=== PATIENT | female | born 1995 | race Caucasian/White ===

== ENCOUNTER 2018-06-15 20:19 | Emergency (ER) | payer OTHER, MEDICAID, SELFPAY ==
[2018-06-15 20:25] VITALS: BP 121/70; PULSE 110; RESP 14; TEMP 36.7; O2SAT 100
--- NOTE | 2018-06-15 20:35 | ED_ITS ---
HPI - Female Genitourinary <Quin Rogers PA-C - Last Filed: 06/15/18 21:49> General Chief complaint: Abdominal Pain Stated complaint: STATES SEVERE PAIN IN RIGHT SIDE AND BACK Time Seen by Provider: 06/15/18 20:23 Source: patient Mode of arrival: ambulatory Limitations: no limitations History of Present Illness HPI Narrative: This 23-year-old female comes in due to right flank pain since yesterday. She states that she had onset of urinary burning and frequency without hematuria 4 days ago. She states that the frequency actually got better but still continues to have burning with urination. She states that the flank pain has been gradually worse since yesterday, constant though applying heat seems to help. She denies abdominal pain. She has had mild nausea today without any vomiting. She has not had fever, chills, or sweats. She states she ate normally earlier today. She denies any new trauma or exercises, no known injury. She denies any rash or recent illness. She denies any vaginal discharge or STD concerns. Denies but not on control. She has a 1-year-old, not breast feeding. No chest pain, dyspnea, or other new symptoms on systems review Related Data Previous Rx's Medication Instructions Recorded amoxicillin 500 mg PO BID #20 cap 02/23/17 levofloxacin 750 mg PO DAILY 5 Days #5 tab 06/15/18 Allergies Allergy/AdvReac Type Severity Reaction Status Date / Time No Known Drug Allergies Allergy Verified 06/15/18 20:27 Review of Systems <Quin Rogers PA-C - Last Filed: 06/15/18 21:49> Review of Systems ROS Unobtainable: All systems reviewed & are unremarkable except as noted in HPI and below PFSH <ADIN Duvall Last Filed: 06/15/18 21:49> Medical History Psoriasis (Chronic) Surgical History Status post (Resolved) Family History Other No pertinent family history Social History Smoking Status: Current every day smoker Family History Other No pertinent family history Social History Smoking Status: Current every day smoker Exam <ADIN Duvall Last Filed: 06/15/18 21:49> Narrative Exam Narrative: GENERAL APPEARANCE: Patient sitting comfortably, in no distress. LUNGS: Clear to auscultation bilaterally. HEART: Rate and rhythm regular without murmur, normal S1 and S2, no S3 or S4. ABDOMEN: Soft, NT, ND, +BS x 4 quadrants, +right CVAT DERMATOLOGIC: No exanthem Initial Vital Signs Initial Vital Signs: Vital Signs Temperature 98.0 F 06/15/18 20:25 Pulse Rate 110 H 06/15/18 20:25 Respiratory Rate 14 06/15/18 20:25 Blood Pressure 121/70 06/15/18 20:25 Pulse Oximetry 100 06/15/18 20:25 <Lucio Payne DO - Last Filed: 06/15/18 22:39> Initial Vital Signs Initial Vital Signs: Vital Signs Temperature 98.0 F 06/15/18 20:25 Pulse Rate 110 H 06/15/18 20:25 Respiratory Rate 14 06/15/18 20:25 Blood Pressure 121/70 06/15/18 20:25 Pulse Oximetry 100 06/15/18 20:25 Course <Quin Rogers PA-C - Last Filed: 06/15/18 21:49> Additional Information: Patient had not eaten dinner or had much fluid later today but tolerating water without problems. She did not feel like she needed antinausea medication while here, was given a prepack of Zofran to have on hand in case needed. She tolerated 1st dose of Zofran without any problems. Discussed importance of her picking this up and continuing antibiotic as well as need to return if any acutely worsening symptoms given that she does not have a PCP. She is agreeable Orders Ordered: ED Orders 06/15/18 20:55 Urine Culture Stat Discontinued Medications Levofloxacin (Levaquin) 750 mg PO NOW ONE Stop: 06/15/18 21:08 Last Admin: 06/15/18 21:14 Dose: 750 mg Ondansetron HCl (Zofran Odt Prepack) 1 bottle MISC SEEINSTR ONE Stop: 06/15/18 21:32 Last Admin: 06/15/18 21:35 Dose: 1 bottle Vital Signs - 8 hr 06/15/18 20:25 06/15/18 21:42 Temperature 98.0 F Pulse Rate 110 H 100 H Respiratory Rate 14 16 Blood Pressure 121/70 122/77 Pulse Oximetry 100 100 Repeat pulse 100 prior to discharge <Lucio Payne DO - Last Filed: 06/15/18 22:39> Orders Ordered: ED Orders 06/15/18 20:55 Urine Culture Stat Discontinued Medications Levofloxacin (Levaquin) 750 mg PO NOW ONE Stop: 06/15/18 21:08 Last Admin: 06/15/18 21:14 Dose: 750 mg Ondansetron HCl (Zofran Odt Prepack) 1 bottle MISC SEEINSTR ONE Stop: 06/15/18 21:32 Last Admin: 06/15/18 21:35 Dose: 1 bottle Vital Signs - 8 hr 06/15/18 20:25 06/15/18 21:42 Temperature 98.0 F Pulse Rate 110 H 100 H Respiratory Rate 14 16 Blood Pressure 121/70 122/77 Pulse Oximetry 100 100 MDM - Female Genitourinary <Quin Rogers PA-C - Last Filed: 06/15/18 21:49> Lab Data Point of Care Testing Test Results Negative Urine Dip Bedside Urine Glucose Negative Bedside Urine Bilirubin - Negative Bedside Urine Ketone - Negative Urine Specific [place] 1.030 Bedside Urine Occult Blood +/- Bedside Urine Protein + 30 Bedside Urine Urobilinogen - Negative Bedside Urine Nitrite - Negative Bedside Urine Leukocytes ++ 125 Esterase <Lucio Payne DO - Last Filed: 06/15/18 22:39> Lab Data Point of Care Testing Test Results Negative Urine Dip Bedside Urine Glucose Negative Bedside Urine Bilirubin - Negative Bedside Urine Ketone - Negative Urine Specific [place] 1.030 Bedside Urine Occult Blood +/- Bedside Urine Protein + 30 Bedside Urine Urobilinogen - Negative Bedside Urine Nitrite - Negative Bedside Urine Leukocytes ++ 125 Esterase Discharge Plan Departure Patient Disposition: Home Clinical Impression: Kidney infection Discharge Date/Time: 06/15/18 21:44 Interventions: ED Discharge Assessment Last Done: 06/15/18 21:42 Instructions: DI for Kidney Infection Activity Restrictions/Additional Instructions: Please spanish moss picker your antibiotic tomorrow and take the next dose tomorrow evening. You have a few nausea pills that we gave you tonight if you do need them. You can use [id number] azo or similar if you needed for urinary pain for the next couple of days. You can also take ibuprofen [id number] 800 mg (4 of the [id number]-[id number] tablets every 8 hr) to help treat your back pain. As we talked about, you should return right away if you have any acutely worsening symptoms, or new symptoms such as vomiting or fever. This antibiotic treats the vast majority of infections however we are sending off a culture to confirm this and it will take 2 or 3 days to come back. Prescriptions: New levofloxacin 750 mg tablet 750 mg PO DAILY 5 Days Qty: 5 RF: 0 No Action amoxicillin 500 MG capsule 500 mg PO BID Qty: 20 RF: 0 <Lucio Payne DO - Last Filed: 06/15/18 22:39> Cosign ED Attending Venancio Attestation: I was immediately available in the department for consultation. Documentation has been reviewed. I agree with assessment and plan.
[2018-06-15] MEDS: levoFLOXacin 250 MG TABLET 750 MG PO (21:14)
[2018-06-15] MEDS: ONDANSETRON 4 MG ODT PREPACK 1 BOTTLE MISC (21:35)
[2018-06-15 21:42] VITALS: BP 122/77; PULSE 100; RESP 16; O2SAT 100
== END 2018-06-15 21:44 | disposition home or self-care (01) ==
PROVIDERS: Emergency Provider Internal Medicine
DX: N15.9 Renal tubulo-interstitial disease, unspecified (principal)
CPT/HCPCS: 81003; 81025; 87077; 87086; 87147; 99283

== ENCOUNTER 2023-04-09 19:15 | Emergency (ER) | payer OTHER, MEDICAID, SELFPAY ==
[2023-04-09 19:20] VITALS: BP 138/81; PULSE 65; RESP 18; TEMP 36.7; O2SAT 99; BMI 23.8
--- NOTE | 2023-04-09 20:37 | ED.SKABFB ---
HPI - Skin/Abscess/Foreign Bdy General Chief complaint: Skin/Abscess/Foreign Body Stated complaint: sinus infection, facial swelling,pain Time Seen by Provider: 04/09/23 19:56 Source: patient Mode of arrival: Ambulatory Limitations: no limitations History of Present Illness HPI narrative: Patient is a 27-year-old female who is here for evaluation worsening left-sided sinus infection. She states that earlier this week she was seen at an outside facility. Was told that it was a sinus infection. Has been on amoxicillin, cetirizine and Decadron however she states that she feels like the swelling on the left side of her face is potentially worsening and certainly not getting any better. No problems swallowing or breathing. Pain is on the left cheek. No fevers. She has taken all of her antibiotics as directed. She has no dental pain. She was told that potentially this was a dental source of an infection but no drainage was done for the time of her original evaluation Related Data Previous Rx's Medication Instructions Recorded amoxicillin 500 mg capsule 500 mg PO BID #20 caps 02/23/17 penicillin V potassium 500 mg 500 mg PO QID 7 days #28 tabs 04/09/23 tablet Allergies Allergy/AdvReac Type Severity Reaction Status Date / Time No Known Drug Allergies Allergy Verified 06/15/18 20:27 Review of Systems Constitutional Constitutional: Reports system reviewed and no additional complaints, except as documented ENT Ears, Nose, Mouth, and Throat: Reports system reviewed and no additional complaints, except as documented Respiratory Respiratory: Reports system reviewed and no additional complaints, except as documented Integumentary/Breasts Skin/Breast: Reports system reviewed and no additional complaints, except as documented Neurologic Neurologic: Reports system reviewed and no additional complaints, except as documented Hematologic/Lymphatic On Anticoagulants: No Patient History Medical History Psoriasis Surgical History (Updated 06/15/18 @ 20:34 by Quin Rogers PA-C) Status post Family History (Updated 06/15/18 @ 20:34 by Quin Rogers PA-C) Other No pertinent family history Social History Smoking Status: Former smoker Smoking Status: Former smoker Substance Use Type: does not use Exam Initial Vital Signs Initial Vital Signs: Vital Signs Temperature 98.1 F 04/09/23 19:20 Pulse Rate 65 04/09/23 19:20 Respiratory Rate 18 04/09/23 19:20 Blood Pressure 138/81 04/09/23 19:20 Pulse Oximetry 99 04/09/23 19:20 Oxygen Delivery Method Room Air 04/09/23 19:20 HENMT Head: normal to inspection and normocephalic Ears: TM's normal bilaterally Face and sinus: no ecchymosis, no erythema and tenderness (Left maxillary region) Mouth: lip normal HENMT Other: Swelling left side of face, Resp Effort & Inspection: normal respiratory effort Skin General: no rashes or lesions noted Neuro General: patient alert, patient awake and moves all extremities Procedures Abscess I/D I&D #1: Site: oral Side (if applicable): left Local Anesthetic: lidocaine 1% Amount of anesthesia used (mL): 2 Technique: incised with #11 blade Irrigation: No Packing used?: none Course Orders Ordered: Discontinued Medications Penicillin V Potassium (Penicillin Vk 250 Mg Tablet) 500 mg PO NOW ONE Stop: 04/09/23 20:47 Last Admin: 04/09/23 20:53 Dose: 500 mg Documented By: DANIEL Vital Signs Vital signs: Vital Signs - 8 hr 04/09/23 19:20 04/09/23 21:33 Temperature 98.1 F Pulse Rate 65 63 Respiratory Rate 18 15 Blood Pressure 138/81 154/84 H Pulse Oximetry 99 100 Oxygen Delivery Method Room Air Room Air MDM - Skin/Abscess/Foreign Bdy MDM Narrative Medical decision making narrative: Patient did have swelling to her left maxillary region. There did appear to be an intraoral abscess left upper jaw line. An incision and drainage was performed with return of purulent material swelling improved afterwards but not completely resolved. Will switch her from amoxicillin to penicillin VK. First dose given here in the ER. She was given the expected course over the next couple days and return precautions she expressed understanding and agreement. Discharge Plan Departure Patient Disposition: Home Clinical Impression: Dental abscess Instructions: Tooth Abscess Activity Restrictions/Additional Instructions: You can stop taking the dexamethasone which is the steroid. Also recommend that you stop taking the amoxicillin and start taking the new antibiotic that was prescribed this evening. Contact your primary doctor for follow-up. You are going to need definitive treatment by a dentist. Return to the emergency department for new symptoms. Prescriptions: New penicillin V potassium 500 mg tablet 500 mg PO QID 7 Days Qty: 28 0RF No Action amoxicillin 500 MG capsule 500 mg PO BID Qty: 20 0RF Stand Alone Forms: Patient Portal/API
[2023-04-09] MEDS: PENICILLIN VK 250 MG TABLET 500 MG PO (20:53)
[2023-04-09 21:33] VITALS: BP 154/84; PULSE 63; RESP 15; O2SAT 100
== END 2023-04-09 21:34 | disposition home or self-care (01) ==
PROVIDERS: Emergency Provider Emergency Medicine
DX: K04.7 Periapical abscess without sinus (principal)
CPT/HCPCS: 40800; 99283